=== PATIENT | male | born 1950 | race Caucasian/White ===

== ENCOUNTER → 2017-07-14 | Outpatient (CLI) | payer MEDICARE, OTHER ==
[~2017-07-14] MED LIST: ATOR20TA22 PO; ESOM40CA42 PO; LANS30CA70 PO; MAGN250T29 PO; MAX75 PO; MECL-111 PO; METO-259 PO; METO50TA19 PO; ONDA4TAB PO; PYRI50 PO; TRIA-19 PO
[2017-07-14 07:54] LABS: PLATELET COUNT, AUTOMATED 210 K/uL (150-450)
--- NOTE | 2017-07-14 08:58 | RADIOLOGY IMAGING REPORT ---
FACILITY: [facility] PATIENT NAME: Mir Cheema : 1950 MR: [id number] V: [id number] EXAM DATE: ORDERING PHYSICIAN: KIKA CHRISTIE TECHNOLOGIST: Location: [facility] Patient: Mir Cheema : 1950 Visit/Account:[id number] Date of Sevice: 07/14/2017 Technique: CHEST PA AND LAT HISTORY: chronic cough COMPARISON: None available Findings: The lungs are clear. No pleural effusion or pneumothorax. The cardiomediastinal silhouett e is unremarkable. Impression: 1. No acute cardiopulmonary process. Report Dictated By: Aamir Mckeon DO at 07/14/2017 8:53 AM Report E-Signed By: Aamir Mckeon DO at 07/14/2017 8:54 AM WSN:[id number]
[2017-07-14 09:09] LABS: LDL CHOLESTEROL 65 mg/dl
--- NOTE | 2017-07-14 09:35 | RADIOLOGY IMAGING REPORT ---
FACILITY: [facility] PATIENT NAME: Mir Cheema : 1950 MR: [id number] V: [id number] EXAM DATE: ORDERING PHYSICIAN: KIKA CHRISTIE TECHNOLOGIST: Location: [facility] [place] Patient: Mir Cheema : 1950 Visit/Account:[id number] Date of Sevice: 07/14/2017 ABDOMINAL AORTIC ULTRASOUND: INDICATION: History of small AAA COMPARISON: 03/28/2014 FINDINGS: Suprarenal abdominal aorta: Not adequately measured. Superior infrarenal abdominal aorta measures 2.9 cm AP X 2.4 cm transverse Mid infrarenal abdominal aorta measures 2.5 cm AP X 2.4 cm transverse Inferior infrarenal abdominal aorta measures 3.7 cm AP X 4.2 cm transverse (3.6 x 3.5 cm previous) Mural thrombus: Mural thrombus appears to be present in the aneurysm. Right common iliac artery measures 1.2 cm and the left common iliac artery measures 1.5 cm. IVC is patent. IMPRESSION: Infrarenal abdominal aortic aneurysm measuring 3.7 x 4.2 cm, larger than on the prior study. Report Dictated By: Harriet Allred MD at 07/14/2017 9:10 AM Report E-Signed By: Harriet Allred MD at 07/14/2017 9:17 AM WSN:[id number]
== END ==
LOC: US 02:24
PROVIDERS: ATTEND Internal Medicine
DX: I71.4 Abdominal aortic aneurysm, without rupture (principal); I10 Essential (primary) hypertension; K21.9 Gastro-esophageal reflux disease without esophagitis; E78.5 Hyperlipidemia, unspecified; R05 Cough; E61.1 Iron deficiency; R79.0 Abnormal level of blood mineral
CPT/HCPCS: 36415; 71046; 81001; 82040; 82247; 82310; 82374; 82435; 82465; 82565; 82728; 82947; 83036; 83540; 83550; 83718; 84075; 84132; 84155; 84295; 84443; 84450; 84460; 84478; 84520; 85025; 93978

== ENCOUNTER → 2017-10-15 | Outpatient (CLI) | payer MEDICARE, OTHER ==
[~2017-10-15] MED LIST changes: +FERR324T16 PO; +TRIA15OI20 TP
--- NOTE | 2017-10-15 16:35 | EKG ---
FACILITY: [facility] [place] PATIENT NAME: RAFFY HERNÁNDEZ : [id number] MR: [id number] V: [id number] EXAM DATE: ORDERING PHYSICIAN: KIKA CHRISTIE TECHNOLOGIST: ARELI Test Reason : SHORTNESS OF BREATH Blood Pressure : / mmHG Vent. Rate : 081 BPM Atrial Rate : 081 BPM P-R Int : 172 ms QRS Dur : 090 ms QT Int : 364 ms P-R-T Axes : 052 056 060 degrees QTc Int : 422 ms Normal sinus rhythm Normal ECG No previous ECGs available Referred By: Confirmed By:
== END ==
LOC: RESP 15:46
PROVIDERS: ATTEND Internal Medicine
DX: Z02.9 Encounter for administrative examinations, unspecified (principal)

== ENCOUNTER → 2017-10-21 | Outpatient (CLI) | payer MEDICARE, OTHER ==
--- NOTE | 2017-10-22 12:03 | RADIOLOGY IMAGING REPORT ---
FACILITY: [facility] [place] PATIENT NAME: RAFFY HERNÁNDEZ : [id number] MR: [id number] V: [id number] EXAM DATE: [id number] ORDERING PHYSICIAN: KIKA CHRISTIE TECHNOLOGIST: Kait Ko EXAMINATION:TWO-DIMENSIONAL ECHOCARDIOGRAPH REASON:SOB/CHEST TIGHTNESS/SLEEP APNEA 2D Measurements (normal values in centimeters) LV endLV endRV endVent.LV PostAorticLeftPercent DiastolicSystolicDiastolicSeptumWallRootAtriumShortening (3.5-5.7)(0.9-2.6)(0.6-1.1)(0.6-1.1)(2.0-3.7)(1.9-4.0)(25-35%) [id number]% STROKE VOLUME: 17ml ESTIMATED EJECTION FRACTION:53-60% LEFT VENTRICLE: Chamber size is normal, mild to moderate left ventricular hypertrophy without LVOT obstruction. Grade 1 diastolic dysfunction. RIGHT VENTRICLE: Normal size & function. RIGHT ATRIUM: Normal size & function. LEFT ATRIUM: Normal size & function, no evidence of intra atrial shunting on Color flow Doppler. AORTIC VALVE: Trileaflet, no significant stenosis or regurgitation. PULMONIC VALVE: Moderate pulmonic regurgitation. MITRAL VALVE: No evidence of significant stenosis or regurgitation. TRICUSPID VALVE: Trace tricuspid regurgitation, RVSP 25mm Hg. PERICARDIUM: No evidence of significant pericardial effusion. EXTRACARDIAC SPACE: No evidence of pleural effusion. GREAT VESSELS: Ascending aorta is mildly dilated at 3.9cm. OVERALL IMPRESSION: 1. Ejection fraction 60-65%, mild to moderate left ventricular hypertrophy with Grade 1 diastolic dysfunction. 2. Moderate pulmonic regurgitation. 3. Study was limited as no subcostal views could be performed due to hernia. 4. Mild aortic dilation at 3.9cm. Dictated by: Randall Diana M.D. on 10/21/2017 at 18:54 Transcribed by: TRAVON on 10/22/2017 at 10:46 Approved by: Randall Diana M.D. on 10/22/2017 at 12:01 [facility]
== END ==
LOC: RESP 01:48
PROVIDERS: ATTEND Internal Medicine
DX: I51.7 Cardiomegaly (principal); I50.30 Unspecified diastolic (congestive) heart failure; I37.1 Nonrheumatic pulmonary valve insufficiency
CPT/HCPCS: 93306; 94060; 94726; 94729

== ENCOUNTER → 2017-11-23 | Outpatient (CLI) | payer MEDICARE, OTHER ==
[~2017-11-23] MED LIST changes: +OMEP-125 PO
[2017-11-23 09:09] LABS: PLATELET COUNT, AUTOMATED 183 K/uL (150-450)
[2017-11-23 10:15] LABS: LDL CHOLESTEROL 54 mg/dl
== END ==
LOC: LAB 08:42
PROVIDERS: ATTEND Internal Medicine
DX: E61.1 Iron deficiency (principal); E78.5 Hyperlipidemia, unspecified; I10 Essential (primary) hypertension; I71.4 Abdominal aortic aneurysm, without rupture
CPT/HCPCS: 36415; 82040; 82247; 82310; 82374; 82435; 82465; 82565; 82728; 82947; 83036; 83540; 83550; 83718; 84075; 84132; 84155; 84295; 84443; 84450; 84460; 84478; 84520; 85025

== ENCOUNTER → 2017-11-26 | Outpatient (CLI) | payer MEDICARE, OTHER | LOC: RESP 19:41 | PROVIDERS: ATTEND Internal Medicine | DX: G47.33 Obstructive sleep apnea (adult) (pediatric) (principal); G47.36 Sleep related hypoventilation in conditions classified elsewhere ==

== ENCOUNTER → 2018-01-28 | Outpatient (CLI) | payer MEDICARE, OTHER ==
[~2018-01-28] MED LIST changes: +PANT40TA65 PO
== END ==
LOC: US 10-22 00:29 → LAB 15:36
PROVIDERS: ATTEND Internal Medicine
DX: Z02.9 Encounter for administrative examinations, unspecified (principal)

== ENCOUNTER → 2018-03-03 | Outpatient (CLI) | payer MEDICARE, OTHER ==
[2018-03-03 09:36] LABS: PLATELET COUNT, AUTOMATED 214 K/uL (150-450)
== END ==
LOC: LAB 09:09
PROVIDERS: ATTEND Internal Medicine
DX: Z12.5 Encounter for screening for malignant neoplasm of prostate (principal); E61.1 Iron deficiency; G47.33 Obstructive sleep apnea (adult) (pediatric); K21.9 Gastro-esophageal reflux disease without esophagitis; E78.49 Other hyperlipidemia; D75.1 Secondary polycythemia; I10 Essential (primary) hypertension
CPT/HCPCS: 36415; 82728; 83540; 83550; 85025; G0103; 82040; 82247; 82310; 82374; 82435; 82565; 82947; 84075; 84132; 84153; 84155; 84295; 84450; 84460; 84520

== ENCOUNTER → 2018-07-21 | Outpatient (CLI) | payer MEDICARE, OTHER ==
[~2018-07-21] MED LIST changes: +ASPI-1471 PO; +HYDR-385 PO; +IBUP800T37 PO
--- NOTE | 2018-07-21 10:21 | RADIOLOGY IMAGING REPORT ---
FACILITY: [facility] [place] PATIENT NAME: Mir Cheema : 1950 MR: [id number] V: [id number] EXAM DATE: ORDERING PHYSICIAN: KIKA CHRISTIE TECHNOLOGIST: Location: [facility] Patient: Mir Cheema : 1950 Visit/Account:[id number] Date of Sevice: 07/21/2018 XR SHOULDER 2 VIEWS HISTORY: b/l shoulder Additional history: None COMPARISON: None. FINDINGS: Three views bilateral shoulders. Right shoulder: Right glenohumeral joint unremarkable in appearance. No arthropathy hepatic changes seen. Left shoulder: There is a small sessile bony excrescence seen off the anterior bony glenoid labrum. Osseous structures intact in both shoulders. IMPRESSION: Right shoulder: Negative. Left shoulder: I suspect anterior labral pathology. Report Dictated By: Yifan Chao MD at 07/21/2018 9:46 AM Report E-Signed By: Yifan Chao MD at 07/21/2018 10:15 AM WSN:[id number]
== END ==
LOC: RAD 08:37
PROVIDERS: ATTEND Internal Medicine
DX: S46.912A Strain of unspecified muscle, fascia and tendon at shoulder and upper arm level, left arm, initial encounter (principal)

== ENCOUNTER → 2018-07-30 | Outpatient (CLI) | payer MEDICARE, OTHER ==
--- NOTE | 2018-07-30 11:59 | RADIOLOGY IMAGING REPORT ---
FACILITY: [facility] PATIENT NAME: Mir Cheema : 1950 MR: [id number] V: [id number] EXAM DATE: ORDERING PHYSICIAN: KIKA CHRISTIE TECHNOLOGIST: Location: [facility] [place] Patient: Mir Cheema : 1950 Visit/Account:[id number] Date of Sevice: 07/30/2018 MR SHOULDER LT W/O CONTRAST COMPARISON: None. HISTORY: Left shoulder strain, abnormal x-ray, possible anterior labral tear. TECHNIQUE: Noncontrast multiplanar MRI of the left shoulder utilizing T1 weighted and fluid sensitiv e sequences. CONTRAST: None. FINDINGS: ROTATOR CUFF: Intermediate signal consistent with mild tendinosis in the distal subscapularis tendon . Moderate tendinosis of the junction of the supraspinatus and infraspinatus tendon insertions with a mild partial-thickness articular surface tear of the tendons just proximal to the insertion and a mi ld bursal sided tear of the tendons at the insertion (series 4 image 11). Teres minor tendon is intac t. No muscle atrophy or edema. BICEPS: Thickened/intermediate signal intra-articular segment of the long head of the biceps tendon consistent with mild tendinosis. The extra-articular segment is normal in caliber and signal and norm ally positioned within the intertubercular sulcus. FLUID/BURSA: There is no glenohumeral effusion. Mild subacromial/subdeltoid bursitis. GLENOHUMERAL JOINT: There is no significant osteoarthritis. Lack of fluid in the joint and arthrog tanya technique limits assessment for subtle labral pathology. There Anterior labrum appears to be int act when accounting for what appears to be a normal variant sublabral foramen. There is apparent diff use irregularity of the posterior labrum especially near the posterior inferior 7-8:00 positions, hernan picious for a tear and probable 2 mm paralabral cyst, best seen series 3 image 16. The rest of the la sharad is intact for technique. The glenohumeral ligaments are intact AC JOINT: There is no acromioclavicular osteoarthritis. Type II acromion without subacromial spur or os acromiale. BONES: There is no osseous malalignment or marrow signal abnormality. There is no Hill-Sachs deformi ty or osseous Bankart lesion. OTHER: Negative. IMPRESSION: 1. Mild left subscapularis tendinosis without superimposed tear. 2. Moderate tendinosis of the junction of the supraspinatus and infraspinatus tendon insertions with mild partial-thickness articular surface tearing just proximal to the insertion, mild bursal sided t earing at the insertion. 3. Mild subacromial bursitis. 4. No discrete anterior labral tear identified on this non-arthrogram study. Suspected tearing of th e posterior labrum with a probable 2 mm paralabral cyst at the posterior 7-8:00 position. Report Dictated By: Andrew Renae at 07/30/2018 11:43 AM Report E-Signed By: Andrew Renae at 07/30/2018 11:55 AM WSN:[id number]
== END ==
LOC: MRI 02:34
PROVIDERS: ATTEND Internal Medicine
DX: S46.012A Strain of muscle(s) and tendon(s) of the rotator cuff of left shoulder, initial encounter (principal); M75.52 Bursitis of left shoulder

== ENCOUNTER → 2018-08-12 | Outpatient (CLI) | payer MEDICARE, OTHER ==
--- NOTE | 2018-08-12 10:05 | RADIOLOGY IMAGING REPORT ---
FAC[place] [facility] [place] NAME: Mir Cheema : 1950 MR: [id number] V: [id number] EXAM DATE: ORDERING PHYSICIAN: KIKA CHRISTIE TECHNOLOGIST: Location: [facility] [place] Patient: Mir Cheema : 1950 Visit/Account:[id number] Date of Sevice: 08/12/2018 ABDOMINAL AORTIC ULTRASOUND: INDICATION: AAA follow-up COMPARISON: 07/14/2017, 03/28/2014 FINDINGS: Suprarenal abdominal aorta measures 2.8 cm AP X 2.5 cm transverse Superior infrarenal abdominal aorta measures 2 cm AP X 2.4 cm transverse Mid infrarenal abdominal aorta measures 1.8 cm AP X 1.6 cm transverse Inferior infrarenal abdominal aorta measures 4.2 cm AP X 4.8 cm transverse (3.7 x 4.2 cm previous) Mural thrombus: None Plaque: None Right common iliac artery measures 1.3 cm and the left common iliac artery measures 1.2 cm. IVC is patent. IMPRESSION: Abdominal aortic aneurysm measuring 4.2 x 4.8 cm, increased compared to previous. Report Dictated By: Harriet Allred MD at 08/12/2018 9:55 AM Report E-Signed By: Harriet Allred MD at 08/12/2018 10:00 AM WSN:[id number]
== END ==
LOC: US 00:21
PROVIDERS: ATTEND Internal Medicine
DX: I71.4 Abdominal aortic aneurysm, without rupture (principal)
CPT/HCPCS: 93979

== ENCOUNTER → 2018-09-16 | Outpatient (CLI) | payer MEDICARE, OTHER | LOC: LAB 09:24 | PROVIDERS: ATTEND Orthopaedic Surgery | DX: M25.50 Pain in unspecified joint (principal) | CPT/HCPCS: 36415; 84550; 85027; 85651; 86038; 86140; 86430 ==

== ENCOUNTER → 2018-10-07 | Outpatient (CLI) | payer MEDICARE, OTHER ==
[2018-10-07 11:53] LABS: PLATELET COUNT, AUTOMATED 200 K/uL (150-450)
[2018-10-07 11:58] LABS: LDL CHOLESTEROL 58 mg/dl
== END ==
LOC: LAB 11:21
PROVIDERS: ATTEND Internal Medicine
DX: I71.4 Abdominal aortic aneurysm, without rupture (principal); D75.1 Secondary polycythemia; E78.5 Hyperlipidemia, unspecified; I10 Essential (primary) hypertension
CPT/HCPCS: 36415; 82040; 82247; 82310; 82374; 82435; 82465; 82565; 82728; 82947; 83540; 83550; 83718; 84075; 84132; 84155; 84295; 84443; 84450; 84460; 84478; 84520; 85025

== ENCOUNTER 2018-10-14 08:01 | Outpatient (RCR) | payer MEDICARE, OTHER ==
[2018-07-21 09:27] VITALS: BP 129/77
[2018-07-21 11:06] LABS: PLATELET COUNT, AUTOMATED 227 K/uL (150-450)
--- NOTE | 2018-07-21 12:24 | ONCOLOGY HISTORY AND PHYSICAL ---
EVENT DATE: July 21, [address] Cuba Cox, french professor, [place], [place]. PRIMARY CARE PROVIDER Will Erickson MD CHIEF COMPLAINT Patient feels well today. HISTORY OF PRESENT ILLNESS Mr. Cheema is a delightful 68-year old gentleman with a known history of obstructive sleep apnea, hyperlipidemia, hypertension and nephrolithiasis. He has been referred to my clinic by Dr. Cox for ongoing concerns for erythrocytosis. The patient had been seen by Dr. Cox in the Pulmonary Clinic in mid March of last year. He reports being on BiPAP at home and he seems to get along with it okay. He relates that he remembers being told back in the 1969's that his red blood cell count was higher than usual. There was no intervention at that time. More recently, due to concern for the erythrocytosis, he has undergone what sounds like blood donation as opposed to a formal therapeutic phlebotomy program. In any case, he has done pretty well with the withdrawal of blood and notably he did undergo a workup in April of last year to evaluate for the possibility of underlying myeloproliferative disorder such as polycythemia vera. The patient is currently taking a baby aspirin a day and he says that it gives him quite a bit more energy so he plans to continue taking it. He has had no history of thrombosis and no abnormal bleeding from his medical history. He does report some fatigue at times but he does tend to keep quite busy. He is helping his son build a house in [place]. He reports no chest pain and he has had no productive cough. He gets somewhat winded with exertion. He denies fever. He has had no changes in bowel or bladder habits. His appetite tends to be quite good and he has had no nausea. REVIEW OF SYSTEMS Otherwise negative and all systems reviewed. PAST MEDICAL HISTORY 1. Reported history of abdominal aortic aneurysm. 2. Hyperlipidemia. 3. Hypertension. 4. Nephrolithiasis. 5. Obstructive sleep apnea. PAST SURGICAL HISTORY 1. Status post cholecystectomy. 2. Status post vasectomy. 3. Status post right shoulder arthroscopy. 4. Status post skin cancer removal from right ear. CURRENT MEDICATIONS 1. Baby aspirin once a day. 2. Atorvastatin. 3. Maxzide. 4. Pantoprazole. 5. Triamcinolone ointment. 6. Metoprolol. ALLERGIES SULFA, OXYCODONE. I do note a listed allergy of aspirin, but the patient is taking baby aspirin without difficulty. SOCIAL HISTORY Patient is a former smoker, having quit years ago. There is no history of alcohol abuse or illicit drug use. FAMILY HISTORY There is a history of reported Alzheimer's disease in his mother, as well as his brother, but he is skeptical about the latter. There is a history of SC in his mother. He also reports that his brother had been told that his red blood cell count is too high. VITAL SIGNS Temperature 98.0, blood pressure 129/77, heart rate 100, respirations 16, oxygen saturation 90% on room air, weight 102.5 kg. PHYSICAL EXAMINATION GENERAL: Alert and oriented x3, no apparent distress, sitting in the exam room chair. He is interactive and quite pleasant, in good spirits. HEENT: Anicteric sclerae. He does not appear particularly flushed. NEUROLOGIC: Grossly nonfocal and his gait is normal. EXTREMITIES: No edema, clubbing or cyanosis. There is no erythema or tenderness to palpation. SKIN: Cursory exam reveals no concerning rash or lesion. LABORATORY STUDIES Reviewed per the [employer] record here at [facility] as well as the Psychiatric record via [facility]. IMAGING None today. ASSESSMENT AND PLAN 1. Erythrocytosis. I had a good visit with Mr. Cheema today. We spent time reviewing his medical history as well as his ongoing treatment of obstructive sleep apnea with BiPAP. He does report that he seems to get along with it fairly well. We discussed his laboratory studies over time and he has had a significant polycythemia. There was enough concern towards the end of last year to work him up for an underlying myeloproliferative disorder, namely polycythemia vera. He also had workup for hemochromatosis. JAK2 V617F mutation was not detected and the JAK2 exon 12 mutation was not detected. In addition, there was no evidence of hemochromatosis mutation. We spent time today reviewing the differences between primary erythrocytosis and secondary erythrocytosis. 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 We discussed the importance of maintaining normal oxygen levels in his blood and he does not seem to have any history of chronic lung disease. He smoked years ago and he has no intention of starting smoking again. I have recommended that he continue with baby aspirin daily. We discussed my skepticism about an underlying myeloproliferative disorder but this cannot be ruled out entirely. He will go to the lab today for a repeat CBC, iron studies and erythropoietin level. He will follow up here in one to two weeks to review these labs. I do think it would be worthwhile for him to consider a formal therapeutic phlebotomy schedule but plans for this will depend on results of his upcoming labs. The patient had several additional questions for me today and I believe I answered all of his questions to his satisfaction. I spent a total of 45 minutes of time face to face with the patient today and 40 minutes of this was spent in direct counseling and coordination of care. JAMEE
[2018-07-28 08:27] VITALS: BP 107/73
[2018-07-28 09:43] VITALS: BP 128/87
[2018-07-28 09:44] VITALS: BP 109/99
--- NOTE | 2018-07-28 20:28 | ONCOLOGY FOLLOW UP NOTE ---
EVENT DATE: July 28, 2018 DIAGNOSIS Secondary erythrocytosis. HISTORY OF PRESENT ILLNESS Mr. Cheema is a delightful 68-year old gentleman with a known history of obstructive sleep apnea, hyperlipidemia, hypertension, and nephrolithiasis. He was referred to Dr. Sorto by Dr. Cox in Pulmonology for ongoing concerns for erythrocytosis. The patient saw Dr. Cox in the Pulmonary Clinic in mid March of last year. He reports being on BiPAP at home, and he seems to get along with it okay. He relates that he remembers being told back in the 1969's that his red blood cell count was higher than usual. There was no intervention at that time. More recently, due to concern for the erythrocytosis, he has undergone what sounds like blood donation as opposed to a formal therapeutic phlebotomy program. In any case, he has done pretty well with the withdrawal of blood, and notably, he did undergo a workup in April of last year to evaluate for the possibility of underlying myeloproliferative disorder such as polycythemia vera. The patient is currently taking a baby aspirin a day, and he says that it gives him quite a bit more energy, so he plans to continue taking it. He has had no history of thrombosis and no abnormal bleeding from his medical history. He does report some fatigue at times, but he does tend to keep quite busy. He is helping his son build a house in [place]. He denies any chest pain, and denies any productive cough. He does get a bit winded with exertion. He denies any fever. He denies any changes in bowel or bladder habits. His appetite tends to be quite good, and he has had no nausea. There was no intervention at that time. More recently, due to concerns of erythrocytosis, he has undergone blood donation at the [facility] at the [facility]. This was done as opposed to a formal therapeutic phlebotomy program. He tolerated this well and reports that this was done sometime in mid February, approximately 03/03/2018. He reports good compliance with BiPAP. He's her for follow-up from labs done last week during consultation. Lastly, he reports having a shoulder x-ray, ordered per his PCP. The patient reports possible tear in the left shoulder and tells me that he's scheduled for an MRI of the left shoulder this Thursday per his PCP. PAST MEDICAL HISTORY 1. Reported history of abdominal aortic aneurysm. 2. Hyperlipidemia. 3. Hypertension. 4. Nephrolithiasis. 5. Obstructive sleep apnea. PAST SURGICAL HISTORY 1. Status post cholecystectomy. 2. Status post vasectomy. 3. Status post right shoulder arthroscopy. 4. Status post skin cancer removal from right ear. SOCIAL HISTORY Patient is a former smoker, having quit years ago. There is no history of alcohol abuse or illicit drug use. FAMILY HISTORY There is a history of reported Alzheimer disease in his mother as well as his brother, but he is skeptical about the latter. There is a history of GA in his mother. He also reports that his brother had been told that his red blood cell count is too high. CURRENT MEDICATIONS 1. Baby aspirin once a day. 2. Atorvastatin. 3. Maxzide. 4. Pantoprazole. 5. Triamcinolone ointment. 6. Metoprolol. ALLERGIES SULFA, OXYCODONE. I do note a listed allergy of aspirin, but the patient is taking baby aspirin without difficulty. SOCIAL HISTORY Patient is a former smoker, having quit years ago. There is no history of alcohol abuse or illicit drug use. REVIEW OF SYSTEMS A 12-point review of systems is performed and is negative except as stated above. As mentioned, he denies any abnormal or unusual bleeding. From a pulmonary standpoint he, denies any significant shortness of breath other than some mild and occasional dyspnea on exertion, but he remains quite active. He denies any constitutional symptoms, which include no recent fevers or infections, no abnormal weight loss, and reports a good appetite. PHYSICAL EXAMINATION VITAL SIGNS: Weight not measured today, last week weight was 102.5 kg. T 99.8 degrees Fahrenheit, BP 107/73, P 82, R 16, O2 saturation 92% room air. GENERAL: Patient is a well-developed, well-nourished, and yrsn-zlebdhec-dyoxgxpyl gentleman in no acute distress. HEAD: Normocephalic, atraumatic. EYES: Sclerae anicteric. MOUTH: Moist mucous membranes. NECK: Supple. No palpable adenopathy. No JVD. LUNGS: Fairly clear breath sounds in the upper lobes with diminished bases bilaterally. Chest expansion is symmetrical. Respiratory effort is normal. CARDIOVASCULAR: Heart rate regular, with normal rhythm. No ectopy. EXTREMITIES: No edema. No clubbing or cyanosis. MUSCULOSKELETAL: Strength is overall symmetric bilaterally in upper and lower extremities. Shoulder assessment deferred today as work-up is being done per PCP. NEUROLOGIC: Grossly nonfocal. Gait is normal. Strength is 5/5 throughout. PSYCHIATRIC: Mood and affect are appropriate and within normal limits. Patient is interactive during examination. Patient is awake, alert, and oriented times three. DERM: Cursory examination does not reveal any suspicious lesions, rash, petechiae, or purpura. There is no obvious facial ruddiness on examination. LABORATORY CBC on 07/21/2018: WBC 6.6, ANC 4.7, hemoglobin 18.0, hematocrit 53.7%, platelets 227,000. CMP on 07/21/2018: Electrolytes within normal limits, which include normal sodium at 139, normal potassium at 4.3, serum creatinine normal at 0.80. He did have a mildly elevated random blood glucose at 114. Ferritin normal at 126, iron saturation 23.4%, TIBC 354. Erythropoietin level normal at 17. LFTs within normal limits, which include normal alkaline phosphatase. IMPRESSION AND PLAN This is a pleasant 68-year-old gentleman with known history of obstructive sleep apnea, hyperlipidemia, hypertension, and nephrolithiasis. He was referred to our clinic by Dr. Cox in Pulmonary for ongoing concerns for erythrocytosis. He was seen by Dr. Cox in the Pulmonary Clinic in mid March of last year. He reports being on BiPAP at home and reports good compliance with this. He tolerates it fairly well. At consultation, the patient did relate to us that he does remember being told as late as back in the s that he had an elevated red blood cell count higher than usual. No intervention was done at that time. Most recently in February 2018, due to concern for erythrocytosis, he had a blood donation times one. He tolerated that well. He was placed on daily baby aspirin and reports good compliance. He follows up with his primary care physician, Dr. Erickson. Recently, he has been reporting some bilateral shoulder pain, and his primary care physician is working this up. He has had an x-ray of bilateral shoulders and has an MRI of the left shoulder pending for this Thursday. Bilateral shoulder x-ray was done on 07/21/18 and showed a possible anterior labral pathology in the left shoulder. There appears to be maybe a small bony excrescence off the anterior bony glenoid labrum. MRI pending, scheduled for later this week. From a hematologic perspective, we reviewed his most recent lab results done last week on 07/21/18. He has had workup for hemochromatosis as well as polycythemia vera. JAK2 V617F mutation was not detected, and the JAK2 exon 12 mutation was not detected. There was no evidence of hemochromatosis mutation. We again spent quite a bit of time today reviewing the differences between primary erythrocytosis and secondary erythrocytosis. I explained that given his history of obstructive sleep apnea as well as living at [facility] in [place], as well as peripheral blood workup previously performed revealing no evidence of JAK2 mutation that his case is very likely and very consistent with a secondary erythrocytosis. We discussed the importance of maintaining normal oxygen levels in his blood. He does not seem to have any history of chronic lung disease, but I did encourage him to continue with his BiPAP per Pulmonology. He no longer smokes, but does report that he smoked years ago. He is on daily baby aspirin. Labs from last week revealed a normal erythropoietin level. I explained that we do not feel that this is an underlying myeloproliferative disorder, but also explained that this cannot completely be ruled out. We discussed consideration of formal therapeutic phlebotomy schedule. 1. Erythrocytosis: Hematocrit based on labs from one week ago revealed hematocrit of 53.7%. This is slightly better than his hematocrit done in February, which was at 57.5%. Regardless, I have ordered one unit of phlebotomy, 500 mL, to be performed today. I explained to patient that our goal would be to keep his hematocrit somewhere between 45% and 50% given his history of sleep apnea as well as accounting for variation with the elevation in oss health. Patient agreed. 2. Patient will have a therapeutic phlebotomy done today in our clinic as he does not believe that he will be able to have this done as a donation through the [facility] as they are only in town once every few weeks. 3. Patient to continue on daily baby aspirin. 4. Workup and pain management regarding his left shoulder are going to be managed by his primary care physician. He does have some pain medication, hydrocodone, per his primary care physician, and I did discuss that he may take this if his left shoulder is particularly bothersome. For now, the patient tells me that he does not taking pain medications and will stick to one Tylenol or one ibuprofen daily if needed. We did discuss potential side effects with nonsteroidal anti-inflammatory drugs. 5. Patient will return to clinic in four weeks for followup with Dr. Sorto or myself. He will have CBC done at his next followup. Further plans for therapeutic phlebotomy schedule will be reviewed at that time. DOMD
[2018-09-01 08:19] VITALS: BP 113/76
[2018-09-01 08:22] LABS: PLATELET COUNT, AUTOMATED 288 K/uL (150-450)
--- NOTE | 2018-09-02 00:02 | ONCOLOGY FOLLOW UP NOTE ---
EVENT DATE: September 01, 2018 DIAGNOSIS Secondary erythrocytosis. CHIEF COMPLAINT Mr. Cheema presents today for ongoing followup of his polycythemia/secondary erythrocytosis. HISTORY OF PRESENT ILLNESS Mr. Cheema is a delightful 68-year old gentleman with a known history of obstructive sleep apnea, hyperlipidemia, hypertension, and nephrolithiasis. He was referred to Dr. Sorto by Dr. Cox in Pulmonology for ongoing concerns for erythrocytosis. The patient saw Dr. Cox in the Pulmonary Clinic in mid March of last year. He reports being on BiPAP at home, and he seems to get along with it okay. He relates that he remembers being told back in the s that his red blood cell count was higher than usual. There was no intervention at that time. More recently, due to concern for the erythrocytosis, he has undergone what sounds like blood donation as opposed to a formal therapeutic phlebotomy program. In any case, he has done pretty well with the withdrawal of blood, and notably, he did undergo a workup in April of last year to evaluate for the possibility of underlying myeloproliferative disorder such as polycythemia vera. He remains on daily baby aspirin. He has reported that this tends to make him feel a bit more energetic. He does not have any history of thrombosis and denies any abnormal bleeding per medical history. He has some fatigue at times, but tells me that he remains quite busy. He is helping his son build a house in [place]. He occasionally has dyspnea on exertion. He has not had any fever, chills, night sweats, or recent infections. He denies any bowel or bladder changes. His appetite has been good. He has not had any nausea. He underwent blood donation at [facility] at the [employer] as opposed to formal therapeutic phlebotomy program. He tolerated that well. That was done in mid February, approximately 03/03/2018. He reports good compliance with BiPAP. At his last visit approximately one month ago, we performed therapeutic phlebotomy in office as his hematocrit at that time was almost 60%. At that time, he had also reported some left shoulder pain which is being worked up by his PCP. He at that point had a left shoulder x-ray and was pending left shoulder MRI. He has now had MRI done. He following up with physicians at [facility]. He will be following up with Dr. Mae on Thursday regarding his left shoulder. He tells me he was that this was simply tendinitis. He has also been having some dry needling done to the left neck which is helping his pain. Lastly, he tells me that he will be following up with a specialist tomorrow in [place] for ongoing surveillance of his abdominal aneurysm. Per patient, this recently grew in size and is approximately 4.5 to 4.7 cm. He has been undergoing watchful surveillance on that. He tells me he feels quite well, but has had some difficulty sleeping at night due to his left shoulder discomfort. PAST MEDICAL HISTORY 1. Reported history of abdominal aortic aneurysm. 2. Hyperlipidemia. 3. Hypertension. 4. Nephrolithiasis. 5. Obstructive sleep apnea. PAST SURGICAL HISTORY 1. Status post cholecystectomy. 2. Status post vasectomy. 3. Status post right shoulder arthroscopy. 4. Status post skin cancer removal from right ear. SOCIAL HISTORY Patient is a former smoker, having quit years ago. There is no history of alcohol abuse or illicit drug use. FAMILY HISTORY There is a history of reported Alzheimer disease in his mother as well as his brother, but he is skeptical about the latter. There is a history of MT in his mother. He also reports that his brother had been told that his red blood cell count is too high. CURRENT MEDICATIONS 1. Baby aspirin once a day. 2. Atorvastatin. 3. Maxzide. 4. Pantoprazole. 5. Triamcinolone ointment. 6. Metoprolol. ALLERGIES SULFA, OXYCODONE. I do note a listed allergy of aspirin, but the patient is taking baby aspirin without difficulty. SOCIAL HISTORY Patient is a former smoker, having quit years ago. There is no history of alcohol abuse or illicit drug use. REVIEW OF SYSTEMS CONSTITUTIONAL: He denies any fevers, chills, or night sweats. No recent infections. HEENT: He denies any vision changes or tinnitus. No epistaxis. No mouth sores. NECK: He has some chronic neck pain which he describes as arthritis. He is currently undergoing PT for his left shoulder and is also having some work done on his neck. He is contemplating a chiropractor. RESPIRATORY: He has occasional dyspnea on exertion, but no shortness of breath. No significant cough or sputum production. No pleuritic chest pain. CARDIAC: He denies any chest pain. No syncope or presyncope. GASTROINTESTINAL: No abdominal pain. No nausea, vomiting, constipation, diarrhea, bright red blood per rectum, or melena. No changes in bowels. Appetite is good. GENITOURINARY: No dysuria, hematuria, or genitourinary discharge. PSYCHIATRIC: He denies any severe anxiety, severe depression, suicidal or homicidal ideation. ENDOCRINE: He denies any heat or cold intolerance. He reports some mild increase in fatigue, but he attributes this to his left shoulder pain and difficulty sleeping at night due to his left shoulder pain. Otherwise, he tells me that he is pretty stable as far as energy. His left shoulder is interfering with his ability to work, which makes him quite frustrated. MUSCULOSKELETAL: He has left shoulder pain related to left shoulder tendinitis and a possibly mild torn rotator cuff. He is undergoing care per Orthopedics. NEUROLOGIC: He denies any headaches or seizure-like activity. He denies any paresthesias, to include no numbness or tingling in any extremity including the left arm. Remainder of a 12-point review of systems is performed today and is otherwise negative. PHYSICAL EXAMINATION VITAL SIGNS: Weight today 104.3 kg, up from previous 102.5 kg. T 97.5, P 90, R 16, BP 113/76, oxygen saturation 91% room air. GENERAL: In general, this is a pleasant 68-year-old gentleman who appears well developed, well nourished, and is in no acute distress. HEAD: Normocephalic, atraumatic. EYES: Sclerae anicteric. ENT, MOUTH: Moist mucous membranes. No suspicious ulcerations. NECK: Supple. No palpable adenopathy. No JVD. LUNGS: Fairly clear breath sounds in the upper lobes with diminished bases bilaterally. Chest expansion is symmetrical. Respiratory effort is normal. CARDIOVASCULAR: Heart rate regular, with normal rhythm. No ectopy. EXTREMITIES: No edema. No clubbing or cyanosis. MUSCULOSKELETAL: Patient has noticeable decreased range of motion to the left upper extremity. He is tucking his arm and shoulder in on the left side. He has difficulty raising his left arm out past the level of his heart. Otherwise, strength is 5/5 in all other extremities. There is no gross swelling or obvious deformity in the left upper extremity. NEUROLOGIC: Grossly nonfocal. Gait is normal. Patient is awake, alert, oriented x3. PSYCHIATRIC: Mood and affect are appropriate and within normal limits. DERM: Cursory examination does not reveal any suspicious lesions, rash, petechiae, or purpura. There is no obvious facial ruddiness on examination. LABORATORY CBC today: WBC 7.7, ANC 5.6, hemoglobin 16.1, hematocrit 49.5%, platelets 288,000. Red blood cell count is still elevated at 5.71 million, though this is improved from 6.11. Red blood cell indices are normal. RDW is slightly elevated at 14.6. IMAGING MRI left shoulder without contrast at [facility] on 07/30/2018: 1. Mild left subscapularis tendinosis without superimposed tear. 2. Moderate tendinosis of the junction of the supraspinatus and infraspinatus tendon insertions with mild partial-thickness articular surface tearing just proximal to the insertion, mild bursal site appearing at the insertion. 3. Mild subacromial bursitis. 4. No discrete anterior labral tear identified on this non-arthrogram study. Suspected tearing of the posterior labrum with a probable 2 mm paralabral cyst at the posterior 7 to 8 o'clock position. IMPRESSION AND PLAN This is a pleasant 68-year-old gentleman with known history of obstructive sleep apnea, hyperlipidemia, hypertension, and nephrolithiasis. He was referred to our clinic by Dr. Cox in Pulmonary for ongoing concerns for erythrocytosis. He was seen by Dr. Cox in the Pulmonary Clinic in mid March of last year. He reports being on BiPAP at home and reports good compliance with this. At his initial consultation, he reported to us that he was told as late as back in the 1970s that he had an elevated red blood cell count, higher than usual. No intervention was done at that time. In February 2018, due to concern for erythrocytosis, he had blood donation times one. He tolerated that well. He was placed on daily baby aspirin, which he continues with today. He has seen Dr. Erickson, his primary care physician. At his last visit, we proceeded with one more therapeutic phlebotomy as his hematocrit at that time was 53.7%. He tolerated that well. Lastly, at his last visit a few weeks ago, he was reporting some new left shoulder pain which is being worked up by his primary care physician. He has had an x-ray and has now had an MRI, and he is following up with Orthopedics. He will be seeing Dr. Mae at [facility] later this week. He tells me that they are contemplating possible what sounds like an epidural steroid injection and is also undergoing physical therapy for the left shoulder and neck. He was told that he has tendinitis and that surgery is not indicated at this time. He does have some significantly decreased range of motion compared to last visit. He is really only taking [id number] medications and is no longer using hydrocodone. Of note, workup here with us at consultation revealed normal erythropoietin level at 17. JAK2 [id number] mutation was not detected, and the JAK2 exon 12 mutation was not detected. There is no evidence of hematochromatosis mutation. Also, he no longer smokes, but is a former smoker. We do not feel that this is an underlying myeloproliferative disorder due to his respiratory history, but we have explained that this cannot completely be ruled out. We have discussed consideration of a more formal therapeutic phlebotomy schedule. 1. Erythrocytosis: Hematocrit today down to 49.5%. Previously, this was 53.7%. He tolerated phlebotomy well one month ago. He has responded well to therapeutic phlebotomy, though he is aware that our goal is to keep his hematocrit somewhere between 45% to 50% given his history of sleep apnea as well as accounting for variation with the elevation in town. He has agreed. 2. As per #1, patient will proceed with therapeutic phlebotomy today, 500 mL. Discussed that this could certainly make him iron deficient, and he is reporting some fatigue. I will recheck iron studies today. At time of dictation, iron studies were not available. He did stop iron supplementation per his primary care physician, and I advised him to continue to hold that. 3. Patient will continue on daily baby aspirin. 4. Patient may require therapeutic phlebotomy one to two every six to eight weeks, but we will re-evaluate this with his labs at next visit. 5. Left shoulder tendinitis: He is following up with [facility]. MRI is noted above. Possibly, he may have a light labral tear, but is currently under their care and is undergoing physical therapy. He will be following up with them Thursday for possible steroid injection. He is undergoing dry needling. He may continue all of those measures per his physicians, and I will try and get in touch with his orthopedists to let them know that he is having some more noticeable decreased range of motion. 6. History of abdominal aneurysm: Patient will be following up with his specialist tomorrow in [place] regarding surveillance for his known abdominal aneurysm. 7. Patient will return to the clinic in four weeks for followup, repeat CBC, and visit with Medical Oncology. He may be iron deficient at next visit, but hopefully his hematocrit will be between our target of 45% to 50%. MTDD
[2018-09-29 08:18] VITALS: BP 120/82
--- NOTE | 2018-10-15 02:06 | ONCOLOGY FOLLOW UP NOTE ---
EVENT DATE: October 14, 2018 REASON FOR FOLLOWUP Secondary polycythemia/erythrocytosis. CHIEF COMPLAINT The patient feels well today, but does note some exercise intolerance. INTERIM HISTORY Aravind returns to clinic for a followup visit today. He reports that since our initial visit a few months ago, he has actually been feeling a bit better. He has had several therapeutic phlebotomies, and he has tolerated these without any problems. He reports no lightheadedness, palpitations, or shortness of breath after the procedures. He has been trying to get some more physical activity. He goes to the gym occasionally, and when he does, he notes that he gets somewhat short of breath with exertion. He denies abdominal pain, and he has had no changes in bowel habits. He reports no new urinary symptoms. He denies fevers, chills, and sweats. He has had laboratory studies drawn, and he is here to potentially undergo additional therapeutic phlebotomy. REVIEW OF SYSTEMS Otherwise negative, and all systems are reviewed. PAST MEDICAL HISTORY 1. Reported history of abdominal aortic aneurysm. 2. Hyperlipidemia. 3. Hypertension. 4. Nephrolithiasis. 5. Obstructive sleep apnea. PAST SURGICAL HISTORY 1. Status post cholecystectomy. 2. Status post vasectomy. 3. Status post right shoulder arthroscopy. 4. Status post skin cancer removal from right ear. CURRENT MEDICATIONS 1. Baby aspirin once a day. 2. Atorvastatin. 3. Maxzide. 4. Pantoprazole. 5. Triamcinolone ointment. 6. Metoprolol. ALLERGIES SULFA, OXYCODONE. I do note a listed allergy of aspirin, but the patient is taking baby aspirin without difficulty. SOCIAL HISTORY Patient is a former smoker, having quit years ago. There is no history of alcohol abuse or illicit drug use. FAMILY HISTORY There is a history of reported Alzheimer's disease in his mother, as well as his brother, but he is skeptical about the latter. There is a history of MD in his mother. He also reports that his brother had been told that his red blood cell count is too high. VITAL SIGNS Temperature is 98.0, blood pressure 121/81, heart rate 88, respirations 16, oxygen saturation 91% on room air. PHYSICAL EXAMINATION GENERAL: Patient is alert and oriented x3, no apparent distress, sitting in the exam room chair. He appears healthy. He is interactive and pleasant. HEENT: Anicteric sclerae. He is not flushed. NEUROLOGIC: Exam is grossly nonfocal, and his gait is normal. EXTREMITIES: No edema, clubbing or cyanosis. There is no erythema or tenderness to palpation. SKIN: Exam reveals no concerning rash or lesion. LABORATORY STUDIES Reviewed per the [facility] record. ASSESSMENT AND PLAN Secondary erythrocytosis. I had a good visit with Aravind today. He has been feeling better in general since initiating therapeutic phlebotomies. He has been working to use his BiPAP at home regularly. He reports no new or concerning symptoms, but he does have some exercise intolerance that has been chronic in nature. We spent time today discussing his diagnosis and the results of prior laboratory studies, to include JAK2 mutation evaluation. Today, he has a hematocrit of greater than 50, so we will sign him up for therapeutic phlebotomy. Historically, he has done quite well with these. We will keep his goal range of hematocrit between 45 and 50, considering elevation in [place]. We have tentatively planned for him to undergo monthly therapeutic phlebotomy for the time being. I will plan to see him back in six months, or sooner if there are questions or concerns. JAMEE
== END 2018-10-18 ==
LOC: ONC 08:01
PROVIDERS: ATTEND Internal Medicine Medical Oncology
DX: D45 Polycythemia vera (principal); G47.33 Obstructive sleep apnea (adult) (pediatric); I10 Essential (primary) hypertension; E78.5 Hyperlipidemia, unspecified; R53.83 Other fatigue; Z79.82 Long term (current) use of aspirin; Z87.891 Personal history of nicotine dependence; Z99.89 Dependence on other enabling machines and devices; M75.92 Shoulder lesion, unspecified, left shoulder
CPT/HCPCS: 36415; 73030; 82668; 82728; 83540; 83550; 85014; 85025; 99195; G0463; 82040; 82247; 82310; 82374; 82435; 82565; 82947; 84075; 84132; 84155; 84295; 84450; 84460; 84520; 99202; 99212

== ENCOUNTER → 2018-10-14 | Outpatient (CLI) | payer MEDICARE, OTHER ==
[2018-10-14 08:11] VITALS: BP 121/81
[2018-10-14 08:21] LABS: PLATELET COUNT, AUTOMATED 262 K/uL (150-450)
== END ==
LOC: SPU 07:58
PROVIDERS: ATTEND Internal Medicine Medical Oncology
DX: D75.1 Secondary polycythemia (principal)
CPT/HCPCS: 85025; 99195

== ENCOUNTER → 2018-11-12 | Outpatient (CLI) | payer MEDICARE, OTHER ==
[2018-11-11 09:26] VITALS: BP 127/73
[~2018-11-12] MED LIST changes: -OMEP-125 PO; +OMEP-126 PO
== END ==
LOC: SPU 09:09
PROVIDERS: ATTEND Internal Medicine Medical Oncology
DX: Z02.9 Encounter for administrative examinations, unspecified (principal)

== ENCOUNTER → 2018-12-07 | Outpatient (CLI) | payer MEDICARE, OTHER | LOC: LAB 07:14 | PROVIDERS: ATTEND Internal Medicine Nephrology | DX: Z13.9 Encounter for screening, unspecified (principal); I71.4 Abdominal aortic aneurysm, without rupture; D75.1 Secondary polycythemia; G47.33 Obstructive sleep apnea (adult) (pediatric); N28.1 Cyst of kidney, acquired; I10 Essential (primary) hypertension | CPT/HCPCS: 36415; 82040; 82310; 82374; 82435; 82550; 82565; 82570; 82947; 84100; 84132; 84156; 84295; 84520 ==